=== PATIENT | male | born 1965 | race Caucasian/White ===

== ENCOUNTER 2022-02-20 17:08 | Emergency (ER) | payer MEDICARE, MEDICAID ==
[~2022-02-20] VITALS: Ht 162.6 cm; Wt 68.0 kg
== END 2022-02-20 18:36 | disposition home or self-care (01) ==
LOC: ED 17:08
DX: F10.129 Alcohol abuse with intoxication, unspecified (principal); F03.90 Unspecified dementia, unspecified severity, without behavioral disturbance, psychotic disturbance, mood disturbance, and anxiety
CPT/HCPCS: 99284

== ENCOUNTER 2022-03-08 17:20 | Emergency (ER) | payer MEDICARE, MEDICAID ==
[~2022-03-08] VITALS: Ht 162.6 cm; Wt 59.0 kg
--- OUTSIDE RECORDS SUMMARY | 2022-03-08 17:22 | XMS ---
PreManage Notification: PEP[employer] Events No recent Security Events currently on file CRITERIA MET - [facility] - 2 Visits in 30 Days CARE PROVIDERS There are no care providers on record at this time. Jonathan has no Care Guidelines for this patient. [facility] (12 MO.) [facility] NOTE: Visits indicate total known visits. [facility] [place] VISIT TRACKING (12 MO.) [facility] COMPLAINT: - INTOXICATION 03/07/2022 20:55 [facility] TYPE: Emergency COMPLAINT: - INTOXICATION 02/20/2022 17:10 [facility] [place] TYPE: Emergency COMPLAINT: - ABD PAIN DIAGNOSES: - Alcohol abuse with intoxication, unspecified - Unspecified dementia without behavioral disturbance INPATIENT VISIT TRACKING (12 MO.) No inpatient visits to display in this time frame [email or web address]
== END 2022-03-08 23:23 | disposition home or self-care (01) ==
LOC: ED 17:20
DX: F10.129 Alcohol abuse with intoxication, unspecified (principal); R10.32 Left lower quadrant pain
CPT/HCPCS: 36415; 74177; 80053; 83690; 85025; G0480; J3411; J7030; Q9967